=== PATIENT | female | born 1955 | race Caucasian/White ===

== ENCOUNTER → 2019-02-14 | Outpatient (CLI) | payer OTHER ==
[~2019-02-14] MED LIST: ASPI81CH PO; Aspirin EC81 MG PO; CALCAVITDA PO; Daily Multiple1 EACH PO; ERGO400 PO; FISH OIL PO; GLUCOSAMIN-CHO1 EACH PO; HYDCHL12.5 PO; HYDCHL25 PO; L-THYROXINE PO; LORA1 PO; LOSA50 PO; LOSARTAN POTAS100 MG PO; METF500 PO; METF500C PO; SIMV10 PO; SYNTHROID112 MCG PO; VITAMIN C500 MG PO
== END | disposition home or self-care (01) ==
LOC: PLD 15:05 → LAB SHORT 15:05
DX: C44.01 Basal cell carcinoma of skin of lip (principal)
CPT/HCPCS: 88305